=== PATIENT | male | born 1995 | race Caucasian/White ===

== ENCOUNTER 2017-06-03 00:32 | Emergency (ER) | payer SELFPAY ==
[2017-06-03 00:35] VITALS: BP 132/75; TEMP 98; O2SAT 98
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
== END 2017-06-03 06:56 | disposition home or self-care (01) ==
LOC: NEPC 00:32
DX: S01.511A Laceration without foreign body of lip, initial encounter (principal); Y09 Assault by unspecified means
CPT/HCPCS: 12011; 70450; 80307